=== PATIENT | male | born 1970 | race Two or more races ===

== ENCOUNTER 2017-03-07 07:41 | Emergency (ER) | payer OTHER ==
[~2017-03-07] VITALS: Ht 170.2 cm; Wt 87.5 kg
[2017-03-07] MEDS ORDERED: IBUPROFEN600 MG ORAL (08:04)
[2017-03-07 08:05] VITALS: BP 136/97
--- NOTE | 2017-03-07 08:10 | Emergency Room Report ---
History of Present Illness General Chief Complaint: Sore Throat Source: Patient Present Illness HPI 46-year-old male no significant past medical history presenting with sensation of lump in throat for one week. Patient states that she has felt a sensation on the left side of his throat, occurs constantly throughout the day with intermittent exacerbations, every day for 7 days. Patient states that there is mild pain. Patient denies any fever or chills, nausea vomiting, lip or tongue swelling. Patient states that this morning he felt the sensation again, and felt anxious then short of breath. Patient denies any change of voice, or any shortness of breath otherwise. Patient denies any coughing. Patient has otherwise been able to eat and drink normally without any issue Allergies: Coded Allergies: No Known Allergies (Unverified , 03/07/17) Patient History Past Medical History: see triage record Past Surgical History: none Pertinent Family History: none Reviewed Nursing Documentation: PMH: Agreed, PSxH: Agreed Nursing Documentation-PMH Past Medical History: No History, Except For Review of Systems All Other Systems: negative except mentioned in HPI Physical Exam Vital Signs Date Time Temp Pulse Resp B/P (MAP) Pulse Ox O2 Delivery O2 Flow Rate FiO2 03/07/17 07:48 98.1 75 19 157/92 100 Sp02 EP Interpretation: reviewed, normal General Appearance: normal inspection, well appearing, no apparent distress, alert, GCS 15, non-toxic Head: normocephalic, atraumatic Eyes: bilateral eye normal inspection, bilateral eye PERRL, bilateral eye EOMI ENT: normal ENT inspection, normal pharynx, normal voice, moist mucus membranes , other - No uvula or tonsillar enlargement, erythema, exudates. Uvula is midline. There are no signs of [employer]. There is no foreign body visualized. Neck: normal inspection, full range of motion, supple, other - No masses, no warmth, no palpable lymph nodes. Nontender midline, nontender lateral aspects of neck. Full range of motion. No torticollis Respiratory: normal inspection, lungs clear, normal breath sounds, no respiratory distress, no retraction, no wheezing, speaking full sentences, chest symmetrical Cardiovascular #1: normal inspection, regular rate, rhythm, no edema, normal capillary refill Cardiovascular #2: 2+ radial (R), 2+ radial (L) Gastrointestinal: normal inspection, non tender, soft, non-distended, no guarding Genitourinary: no CVA tenderness Musculoskeletal: normal inspection, back normal, normal range of motion, non- tender Neurologic: normal inspection, alert, oriented x3, responsive, motor strength/ tone normal, sensory intact, normal gait, speech normal Psychiatric: normal inspection, judgement/insight normal, memory normal Skin: normal inspection, normal color, no rash, warm/dry, well hydrated, normal turgor Medical Decision Making Diagnostic Impression: Primary Impression: Sensation of lump in throat ER Course 46 yo male with sore throat/sensation of lump in throat DDX: viral vs. infectious mononucleosis vs. bacterial pharyngitis vs. allergies Other serious causes such as [employer] / RPA / deep space neck infection At this time history and physical is benign Plan: Motrin, supportive care ER course: Patient remains stable in ED Airway patent, speaking complete sentences Disposition: Patient will be discharged to home. Patient will follow up with primary care doctor within 5 days. Strict return precautions discussed with patient such as worsening throat pain/swelling, dysphagia, high fever or chills, shortness of breath, abdominal pain, which may indicate severe illness. Patient verbalized understanding and agreed with plan. Patient also instructed to followup with an ENT specialist in one week if symptoms do not resolve. Please note that this Emergency Department Report was dictated using [employer] analyst technology software, occasionally this can lead to erroneous entry secondary to interpretation by the dictation equipment. Last Vital Signs Date Time Temp Pulse Resp B/P (MAP) Pulse Ox O2 Delivery O2 Flow Rate FiO2 03/07/17 07:48 98.1 75 19 157/92 100 Disposition: HOME, SELF-CARE Condition: Stable Scripts Ibuprofen* (MOTRIN*) 600 Mg Tablet 600 MG ORAL Q8H Y for For Pain, #30 TAB 0 Refills Prov: Carmelo Stuart M.D. 03/07/17 Patient Instructions: Sore Throat Additional Instructions: Please follow up with your primary care doctor within 3 days. Please follow up with ENT specialist in 2 days if symptoms not improved Please take your prescription medication as directed. Please come back to the emergency room if you are having severe/worsening pain, headache, shortness of breath, inability or pain with swallowing, or intractable nausea or vomiting Carmelo Stuart M.D. Mar 07, 2017 08:10
== END 2017-03-07 08:17 | disposition home or self-care (01) ==
LOC: EMR 08:02
DX: R09.89 Other specified symptoms and signs involving the circulatory and respiratory systems (principal)
CPT/HCPCS: 99283